=== PATIENT | female | born 1970 | race Caucasian/White ===

== ENCOUNTER 2018-07-11 17:14 | Emergency (ER) | payer MEDICARE, MEDICAID ==
[2018-07-11] MEDS ORDERED: HYDROcodone/Acetaminophen 5/325 mg Tablet ONE (17:50)
--- NOTE | 2018-07-11 18:19 | CT ---
CT OF THE BRAIN WITHOUT CONTRAST: 07/11/18 COMPARISON: None. HISTORY: Neck and back pain after falling out of bed one week ago. Head trauma. TECHNIQUE: Multiple contiguous axial images were obtained in a CT of the brain without contrast. FINDINGS: The brain is normal in morphology and attenuation without focal lesions or confluent areas of infarct ion. There is no evidence of hydrocephalus, intracranial hemorrhage, or extra-axial fluid collections . The calvarium and overlying soft tissues are unremarkable. The visualized paranasal sinuses and masto id air cells are well aerated. IMPRESSION: No evidence of acute intracranial abnormality. POS: [facility]
--- NOTE | 2018-07-11 18:22 | CT ---
CT OF THE CERVICAL SPINE WITHOUT CONTRAST: 07/11/18 COMPARISON: None. HISTORY: Neck and back pain after falling out of bed one week ago. TECHNIQUE: Multiple contiguous axial images were obtained in a CT of the cervical spine without contrast. Sagit osvaldo and coronal reformats were performed. FINDINGS: The vertebral bodies and intervertebral discs demonstrate normal height and alignment without fractur e or subluxation. Minimal degenerative change is seen involving the superior end plate of C5. The posterior facets are well aligned. Normal alignment of the skull base with the cervical spine is seen. IMPRESSION: No evidence of acute osseous abnormality of the cervical spine. POS: [facility]
--- NOTE | 2018-07-11 18:24 | CT ---
CT OF THE THORACIC SPINE WITHOUT CONTRAST: 07/11/18 HISTORY: Fall out of bed one week ago with back pain. TECHNIQUE: Multiple contiguous axial images were obtained in a CT of the thoracic spine without contrast. Sagitt al and coronal reformats were performed. FINDINGS: The vertebral bodies and intervertebral discs demonstrate normal height and alignment without fractur e or subluxation. There appears to be a hemangioma within the T10 vertebral body which demonstrates a corduroy appearance. Small osteophytes are seen throughout the thoracic spine. No prevertebral sof t tissue swelling is seen. The prevertebral and paraspinal soft tissues are unremarkable. IMPRESSION: Degenerative changes of the thoracic spine without acute osseous abnormality. POS: [facility]
[2018-07-11] MEDS ORDERED: Ketorolac Tromethamine 30 MG/ML VIAL ONE (18:41)
== END 2018-07-11 19:55 | disposition home or self-care (01) ==
LOC: ERS 17:14
DX: S29.012A Strain of muscle and tendon of back wall of thorax, initial encounter (principal); M54.2 Cervicalgia; R51 Headache; E11.9 Type 2 diabetes mellitus without complications; I10 Essential (primary) hypertension; F41.9 Anxiety disorder, unspecified; Z79.899 Other long term (current) drug therapy; W06.XXXA Fall from bed, initial encounter
CPT/HCPCS: 70450; 72125; 72128; 96372; J1885